=== PATIENT | male | born 1980 | race Caucasian/White ===

== ENCOUNTER 2018-06-03 16:11 | Emergency (ER) | payer SELFPAY ==
[~2018-06-03] VITALS: Ht 188 cm; Wt 97.5 kg
--- NOTE | 2018-06-03 16:26 | NUR ---
PT AMBULATED TO ER BED 01
[2018-06-03 16:28] VITALS: BP 131/81
--- NOTE | 2018-06-03 16:33 | NUR ---
PATIENT STATES HE HAS HAD SORE THROAT, RUNNY NOSE, FINN, AND CHEST PAIN WHEN HE BREATHES FOR 2 DAYS. STATES HIS PAIN IS 7/10. DENIES N/V/D; SKIN IS PINK/WARM/DRY; AAOX4 WITH EVEN AND STEADY GAIT; LUNGS CLEAR BL; HR EVEN AND REGULAR; VSS; PATIENT POSITIONED FOR COMFORT; HOB ELEVATED; BEDRAILS UP X2; BED DOWN. ER MD MADE AWARE OF PT STATUS.
[2018-06-03] MEDS ORDERED: KETOROLAC 60 MG/2 ML VIAL IM ONE (16:50)
[2018-06-03] MEDS ORDERED: ALBUTEROL 0.083% 2.5 MG/3 ML NEBU INH ONE (16:50)
[2018-06-03] MEDS ORDERED: IPRATROPIUM 0.02% 0.5 MG/2.5 ML NEBU INH ONE (16:50)
--- NOTE | 2018-06-03 17:05 | NUR ---
RT AT BEDSIDE.
[2018-06-03 17:49] VITALS: BP 129/82
--- NOTE | 2018-06-03 17:49 | NUR ---
Patient discharged with v/s stable. Written and verbal after care instructions given and explained. Patient alert, oriented and verbalized understanding of instructions. Ambulatory with steady gait. All questions addressed prior to discharge. ID band removed. Patient advised to follow up with PMD. Rx of TAMIFLU, ZOFRAN, ALBUTEROL INH given. Patient educated on indication of medication including possible reaction and side effects. Opportunity to ask questions provided and answered.
== END 2018-06-03 17:49 | disposition home or self-care (01) ==
LOC: MED 16:11
DX: J09.X2 Influenza due to identified novel influenza A virus with other respiratory manifestations (principal); J98.01 Acute bronchospasm; Z90.49 Acquired absence of other specified parts of digestive tract
CPT/HCPCS: 36415; 87804; 94640; 96372; 99283; J1885; J7613; J7644